=== PATIENT | male | born 2000 | race Caucasian/White ===

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

== ENCOUNTER 2025-03-11 14:05 | Outpatient (CLI) | payer BC | END 2025-03-11 14:06 | disposition home or self-care (01) | LOC: BICRAD 14:05 | PROVIDERS: ATTEND Internal Medicine | DX: M25.572 Pain in left ankle and joints of left foot (principal); M25.532 Pain in left wrist; M93.272 Osteochondritis dissecans, left ankle and joints of left foot ==